=== PATIENT | female | born 1975 | race Caucasian/White ===

== ENCOUNTER 2016-05-19 00:25 | Emergency (ER) | payer BC, OTHER ==
[~2016-05-19] VITALS: Ht 175.3 cm; Wt 65.0 kg
[2016-05-19] MEDS ORDERED: LISI-519 PO (00:31)
[2016-05-19 00:32] VITALS: BP 171/94; PULSE 63; RESP 18; TEMP 98.8; O2SAT 100
--- NOTE | 2016-05-19 00:50 | PD ---
HPI Chief Complaint: Psychiatric Symptoms Time Seen by Provider: 00:40 Travel History International Travel<30 days: No Contact w/Intl Traveler<30days: No Traveled to known affect area: No History of Present Illness HPI 41-year-old female here as a Osorio act. Patient states that over the course the last months she's been involved in a breakup with her girlfriend at 18+ years. She has been sleeping well, work is been extremely stressful. She went for a walk tonight and was speaking on the telephone with her friend and made a comment to a friend about how she "could just jump off of bridge" because she is sick of dealing with everything that is going on in her life. Patient states that this was a comment out of anger and was not a real suicidal statement. She does not feel suicidal and does not have a plan at this time. Patient minutes that she's been depressed as of late, has issues with anxiety and takes Xanax occasionally. She did take 2 of these today. Police was called by patient's friend, who found her on a bridge and brought her here. [facility] Past Medical History Hypertension: Yes Tetanus Vaccination: Unknown Influenza Vaccination: No ?: Not LMP: 04/17/16 Past Surgical History Other Surgery: Yes (laparoscopy 1991) Social History Alcohol Use: Yes (occasional ) Tobacco Use: No Substance Use: Yes (occasional marijuana ) Allergies-Medications (Allergen,Severity, Reaction): Coded Allergies: Penicillin (Verified Allergy, Unknown, 05/19/16) Reported Meds & Prescriptions Reported Meds & Active Scripts Active Reported Lisinopril 5 Mg Tab 5 Mg PO DAILY Review of Systems Except as stated in HPI: all other systems reviewed are Neg Physical Exam Narrative GENERAL: Well-appearing female in no acute distress SKIN: Focused skin assessment warm/dry. HEAD: Normocephalic. EYES: No scleral icterus. No injection or drainage. ENT: Mucous membranes pink and moist. NECK: Supple CARDIOVASCULAR: Regular rate and rhythm. RESPIRATORY: No accessory muscle use. MUSCULOSKELETAL: Normal gait NEUROLOGICAL: Awake and alert. Normal speech. PSYCHIATRIC: Depressed mood and affect but denies any suicidal ideation or plan , delusions, hallucinations or homicidal ideation. Data Data Last Documented VS Vital Signs Date Time Temp Pulse Resp B/P Pulse Ox O2 Delivery O2 Flow Rate FiO2 05/19/16 00:32 98.8 63 18 171/94 100 Orders Complete Blood Count With Diff (05/19/16 00:31) Comprehensive Metabolic Panel (05/19/16 00:31) Psych Screen (05/19/16 00:31) Drug Screen, Random Urine (05/19/16 00:31) Labs Laboratory Tests Test 05/19/16 00:50 White Blood Count 10.5 TH/MM3 Red Blood Count 4.51 MIL/MM3 Hemoglobin 13.7 GM/DL Hematocrit 40.6 % Mean Corpuscular Volume 90.1 FL Mean Corpuscular Hemoglobin 30.3 PG Mean Corpuscular Hemoglobin 33.7 % Concent Red Cell Distribution Width 13.4 % Platelet Count 190 TH/MM3 Mean Platelet Volume 10.1 FL Neutrophils (%) (Auto) 65.6 % Lymphocytes (%) (Auto) 24.0 % Monocytes (%) (Auto) 8.8 % Eosinophils (%) (Auto) 0.7 % Basophils (%) (Auto) 0.9 % Neutrophils # (Auto) 6.9 TH/MM3 Lymphocytes # (Auto) 2.5 TH/MM3 Monocytes # (Auto) 0.9 TH/MM3 Eosinophils # (Auto) 0.1 TH/MM3 Basophils # (Auto) 0.1 TH/MM3 CBC Comment DIFF FINAL Differential Comment Sodium Level 138 MEQ/L Potassium Level 3.8 MEQ/L Chloride Level 104 MEQ/L Carbon Dioxide Level 27.1 MEQ/L Anion Gap 7 MEQ/L Blood Urea Nitrogen 11 MG/DL Creatinine 0.88 MG/DL Estimat Glomerular Filtration 70 ML/MIN Rate Random Glucose 95 MG/DL Calcium Level 8.9 MG/DL Total Bilirubin 0.4 MG/DL Aspartate Amino Transf 20 U/L (AST/SGOT) Alanine Aminotransferase 21 U/L (ALT/SGPT) Alkaline Phosphatase 37 U/L Total Protein 7.8 GM/DL Albumin 4.2 GM/DL [facility] Medical Decision Making Medical Screen Exam Complete: Yes Emergency Medical Condition: Yes Medical Record Reviewed: Yes Differential Diagnosis 41-year-old female here as a Osorio act. Differential includes depression, suicidal ideation, adjustment reaction, mood disorder, substance induced mood disorder. Narrative Course Patient placed on monitor, IV established and blood obtained. CBC, CMP unremarkable. Patient medically cleared for psychiatric evaluation, urine drug screen remains pending. Diagnosis Primary Impression: Adjustment reaction Qualified Code: F43.21 - Adjustment disorder with depressed mood Anu Rose MD May 19, 2016 00:50
[2016-05-19 00:56] LABS: AUTOMATED NEUTROPHIL # 6.9 TH/MM3 (1.8-7.7); BASOPHIL # 0.1 TH/MM3 (0-0.2); BASOPHIL % 0.9 % (0.0-2.0); EOSINOPHIL # 0.1 TH/MM3 (0-0.4); EOSINOPHIL % 0.7 % (0.0-4.0); HEMATOCRIT 40.6 % (35.0-46.0); HEMO FLAGS DIFF FINAL; LYMPHOCYTE # 2.5 TH/MM3 (1.0-4.8); MEAN CELL VOLUME 90.1 FL (80.0-100.0); MEAN CORPUSCULAR HEMOGLOBIN 30.3 PG (27.0-34.0); MEAN CORPUSCULAR HGB CONC 33.7 % (32.0-36.0); MONO % 8.8 % (0.0-8.0); NEUT % 65.6 % (16.0-70.0); PLATELET COUNT 190 TH/MM3 (150-450); RED BLOOD COUNT 4.51 MIL/MM3 (4.00-5.30); RED CELL DISTRIBUTION WIDTH 13.4 % (11.6-17.2); WHITE BLOOD COUNT 10.5 TH/MM3 (4.0-11.0)
[2016-05-19 01:22] LABS: ALT (GPT) 21 U/L (10-53); ANION GAP 7 MEQ/L (5-15); AST (GOT) 20 U/L (15-37); BICARBONATE 27.1 MEQ/L (21.0-32.0); BLOOD UREA NITROGEN 11 MG/DL (7-18); CHLORIDE 104 MEQ/L (98-107); GLOMERULAR FILTRATION RATE 70 ML/MIN (>89); POTASSIUM 3.8 MEQ/L (3.5-5.1); SODIUM (NA) 138 MEQ/L (136-145)
[2016-05-19 01:24] LABS: ALKALINE PHOSPHATASE 37 U/L (45-117); TOTAL BILIRUBIN ADULT 0.4 MG/DL (0.2-1.0)
[2016-05-19 01:26] LABS: AMPHETAMINE, URINE NEG (NEG); BARBITURATES, URINE NEG (NEG); COCAINE, URINE NEG (NEG)
[2016-05-19 06:19] VITALS: BP 159/88; PULSE 78; RESP 18; TEMP 97.9; O2SAT 98
[2016-05-19 08:00] VITALS: BP 154/89; PULSE 77; RESP 16; O2SAT 98
[2016-05-19 12:00] VITALS: BP 150/88; PULSE 62; RESP 15; O2SAT 98
[2016-05-19 16:00] VITALS: BP 156/83; PULSE 67; RESP 16; O2SAT 98
[2016-05-20 02:54] VITALS: BP 140/81; PULSE 56; RESP 17; O2SAT 99
[2016-05-20 05:57] VITALS: BP 159/75; PULSE 77; RESP 18; TEMP 97.2; O2SAT 98
[2016-05-20 06:34] VITALS: BP 140/90; PULSE 77; RESP 17; O2SAT 97
[2016-05-20 08:07] VITALS: BP 140/90; PULSE 77; RESP 17; O2SAT 97
--- NOTE | 2016-05-20 11:10 | PD.CONS ---
Provisional Diagnosis Admission Date Dwight I. Adjustment disorder with depressed mood Dwight II. Deferred Dwight III. HTN Dwight IV. Conflicts with significant other Dwight V. 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 Patient states that over the course the last months she's been involved in a breakup with her girlfriend. She has not been sleeping well, work is been extremely stressful at least in the last 3 weeks, she has been doing her job, but also supplanting another person who recently quit. She also has been having repeated argument with significant other and their relationship is being going down the hill. She went for a walk last night and was speaking on the telephone with her friend and made a comment to a friend about how she "could just jump off of bridge" because she is sick of dealing with everything that is going on in her life. She actually took her car and drove to the bridge "but it my way called my best friend who is a therapist and ask her for help and she called the police". Patient also took about 2 or 3 pills of Xanax to calm down. At the moment of this evaluation patient is calm, cooperative, pleasant, she explains that her action yesterday was the result of severe overwhelmingness and frustration, but any moment she which to be , "I just wanted to be heard and to be understood and I wanted to make my point". Patient is future oriented at this moment, she says that she lost her job, she lost her family, she loved her significant other "we have a lot of problems, but would love each other, we have been together for 16 years now". Patient endorses several protective factors. She reports good mood, denies anhedonia, denies hopelessness, denies helplessness, denies worthlessness, denies poor energy, denies poor appetite, she does endorses a stress and problems sleeping at night in the last week "but I know that once things settle down I would be fine". She denies suicidal and homicidal ideation, she denies visual and auditory hallucinations. Patient is fully oriented 3, no deficit in attention , no gross cognitive impairment observed. Patient reports occasional use of marijuana, once or twice per month, occasional use of Xanax, maybe once every 2- 3 months, she denies the use of other drugs and alcohol. Review of Systems Constitutional: DENIES: Diaphoretic episodes, Fatigue, Fever, Weight gain, Weight loss, Chills, Dizziness, Change in appetite, Night Sweats Endocrine: DENIES: Abnorml menstrual pattern, Heat/cold intolerance, Polydipsia , Polyuria, Polyphagia Eyes: DENIES: Blurred vision, Diplopia, Eye inflammation, Eye pain, Vision loss , Photosensitivity, Double Vision Ears, nose, mouth, throat: DENIES: Tinnitus, Hearing loss, Vertigo, Nasal discharge, Oral lesions, Throat pain, Hoarseness, Ear Pain, Running Nose, Epistaxis, Sinus Pain, Toothache, Odynophagia Respiratory: DENIES: Apneas, Cough, Snoring, Wheezing, Hemoptysis, Sputum production, Shortness of breath Cardiovascular: DENIES: Chest pain, Palpitations, Syncope, Dyspnea on Exertion , PND, Lower Extremity Edema, Orthopnea, Claudication Genitourinary: DENIES: Abnormal vaginal bleeding, Dysmenorrhea, Dyspareunia, Sexual dysfunction, Urinary frequency, Urinary incontinence, Urgency, Hematuria , Dysuria, Nocturia, Vaginal discharge Musculoskeletal: DENIES: Joint pain, Muscle aches, Stiffness, Joint Swelling, Back pain, Neck pain Integumentary: DENIES: Abnormal pigmentation, Pruritus, Rash, Nail changes, Breast masses, Breast skin changes, Nipple discharge Immunologic/allergic: DENIES: Eczema, Urticaria Neurologic: DENIES: Abnormal gait, Headache, Localized weakness, Paresthesias, Seizures, Speech Problems, Tremor, Poor Balance Psychiatric: DENIES: Anxiety, Confusion, Mood changes, Depression, Hallucinations, Agitation, Suicidal Ideation, Homicidal Ideation, Delusions Past Family Social History Coded Allergies: Penicillin (Verified Allergy, Unknown, 05/19/16) Reported Medications Lisinopril 5 Mg Tab5 Mg PO DAILY #30 TAB Ref 0 05/19/16 Family History She denies Social History Patient was born and raised in [place], she has been living afraid of for 20 years, she lives with significant other in [place], 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 Patient's Strengths (min. 2) Verbal communication , family support Physical Exam No EPS, no tremors, no psychomotor retardation, no rigidity or stiffness present on physical exam Vital Signs Vital Signs Date Time Temp Pulse Resp B/P Pulse Ox O2 Delivery O2 Flow Rate FiO2 05/20/16 08:07 77 17 140/90 97 Room Air 05/20/16 05:57 97.2 I/O 05/19/16 05/19/16 05/20/16 08:00 16:00 00:00 Intake Total 120 ml Balance 120 ml Mental Status Examination Appearance woman, age appearing, good hygiene, shorthaired, calm, cooperative and pleasant Speech: Unremarkable Orientation: x3 Memory: Unremarkable Thought Process: Logical Thought Content: Unremarkable Hallucination Type: None Attention and Concentration: Good Suicidal Ideation: No Previous Suicide Attempts: No Homicidal Ideation: No Previous Homicide Attempts: No Insight: Good Affect: Good Mood: Appropriate Motor Activity: Normal gait Assessment & Plan Problem List: (1) Adjustment reaction Assessment & Plan: 41-year-old woman without any previous significant psychiatric history, no previous psychiatric hospitalization, no previous Osorio acted, no previous attempts who was Osorio acted and escorted to the ER after expressing suicidal ideation by jumping off a bridge in the context of an argument with her significant other. On psychiatric evaluation patient today is found calm, cooperative and pleasant. Patient explains that her recent suicidal statements and gesture was the result of about a week of ongoing arguments with significant others, but also extracting stress in her job, poor sleep at night and other overwhelming situations. Patient clarifies that making a suicidal statement and walking to a bridge was her weight of catharsis and making her point, but she did not have any suicidal intentions. She is future oriented, with several protective factors identified. At the moment of this evaluation the patient denies depressive symptoms, denies anxiety, denies alexx, denies psychosis, denies suicidal and homicidal ideation. She denies visual and auditory hallucinations. Based on this evaluation, longitudinal observation and patient's psychiatric history, is highly probable the patient was not really suicidal, but angry and stressed. After extensive psychoeducation, support and orientation about the importance of using healthy coping skills, it's been decided that the patient does not meet criteria for psychiatric admission at this moment. Patient will continue psychiatric follow- up with private counselor, Osorio act would be lifted. ICD Code: F43.20 Assessment & Plan Estimated LOS: days Problem Qualifiers (1) Adjustment reaction: Qualified Code: F43.21 - Adjustment disorder with depressed mood Kalia Singletary MD May 20, 2016 11:10
== END 2016-05-20 10:01 | disposition home or self-care (01) ==
LOC: NEPE 00:25 → NEPJ 05-20 10:01
DX: F43.21 Adjustment disorder with depressed mood (principal); I10 Essential (primary) hypertension
CPT/HCPCS: 80053; 80307; 85025; 99285